=== PATIENT | male | born 1945 | race Caucasian/White ===

== ENCOUNTER 2021-03-05 09:56 | Emergency (ER) | payer MEDICARE, MEDICAID ==
[~2021-03-05] VITALS: Ht 168.9 cm; Wt 77.3 kg
--- OUTSIDE RECORDS SUMMARY | 2021-03-05 10:04 | CCD | Continuity of Care Document ---
Author Author Sadiq OBRGES M.D. Organization Unknown Address [address] [facility], [address] [place] [address] Phone [phone] Care Team Providers Care Manager Cable Name Role Phone Axel Lake MD @ [facility] Int AUTM Problems Description No Information Available Social History Type Date Description Comments Sex Unknown ETOH Use Currently consumes alcohol CASE/ WK Tobacco Use Start: Unknown End: Unknown Patient is a former smoker 1/2 ppd x55 years quit in 2018 Recreational Drug Use Regularly uses Marijuana Allergies and adverse reactions Description No Known Drug Allergies Medications Active Medications SIG Qnty Indications Ordering Provide r Date Omeprazole 40mg Capsules DR 1 by mouth daily 30caps K21.00 Irving Borges M.D. 02/01/2021 Allopurinol 100mg Tablets 2 by mouth every day Unknown Finasteride 5mg Tablets daily Unknown Aspirin Low Dose 81mg Tablets DR 1 PO Daily Unknown Vitamin B-12 1000mcg Tablets 1 by mouth every day Unknown Atorvastatin Calcium 20mg Tablets one tab once daily Unknown History Medications Suprep Bowel Prep Kit 17.5-3.13-1.6GM/177ML Solution take per doctor's bowel prep instructions. 354ml Irving Borges M.D. 01/12/2021 - 01/31/2021 Immunizations Description No Information Available Vital Signs Date Vital Result Comment 02/01/2021 1:30pm BP Systolic 148 mmHg BP Diastolic 76 mmHg Heart Rate 83 /min Body Temperature 98.3 F Height 66.5 inches 5'6.50" Weight 172.00 lb BMI (Body Mass Index) 27.3 kg/m2 [place] Body Weight 142 lb Weight 78.019 kg BSA (Body Surface Area) 1.89 m2 01/05/2021 10:55am BP Systolic 135 mmHg BP Diastolic 74 mmHg Body Temperature 98.4 F Height 66.5 inches 5'6.50" Weight 171.38 lb BMI (Body Mass Index) 27.2 kg/m2 [place] Body Weight 142 lb Weight 77.736 kg BSA (Body Surface Area) 1.88 m2 Results Test Acquired Date Facility Test Result H/L Range Note Laboratory test finding 01/21/2021 [facility] Main Lab [address] [place] [address] [phone] Pathology Request For Service (SEE NOTE) 1 1 FINAL DIAGNOSIS A-Gastric polyp, polypectomy: Polypoid fragments of gastric mucosa with focal foveolar hyperplasia, mild chronic inflammation and reactive changes. No H.pylori is identified. B-Colon polyps, polypectomy: Tubular adenoma, fragments. Separate fragments of hyperplastic polyp. 01/25/2021 - 1048 CLINICAL DIAGNOSIS H/O polyps, dysphagia 01/21/2021 - 1450 GROSS DIAGNOSIS A - Received in formalin labeled "gastric polyp" and consists of fragment of tissue 0.3 x 0.2 x 0.1 cm. All in one. B - Received in formalin labeled "colon polyps" and consists of fragments of tissue 0.5 x 0.5 x 0.2 cm. in aggregate. All in one. -OA 01/25/2021 - 1048 Signed JOSESITO KHAN MD 01/25/2021 1053 Procedures Date Code Description Status 02/01/2021 81667 Office/Outpatient Established Mo d MDM 30-39 Min Completed 01/21/2021 19077 Colonoscopy W/ Poly Completed 01/21/2021 62138 Endoscopy Upper GI Remove Tumor/ Polyp/Lesion Snare Technique Completed 01/21/2021 05419 Endoscopy Upper GI Balloon Dilat ion Of Esophagus Completed 01/05/2021 88828 Office/Outpatient New Moderate M DM 45-59 Minutes Completed Medical Devices Description No Information Available Encounters Type Date Location Provider Dx Diagnosis Office Visit 02/01/2021 1:30p [facility] VENKAT Massey D12.6 Benign neoplasm of colon, unspecified K21.00 Gastro-esophageal reflux dis with esophagitis, without bleed K57.30 Dvrtclos of lg int w/o perfo ration or abscess w/o bleeding Office Visit 01/05/2021 10:30a [facility] VENKAT Massey Z86.010 Personal history of colonic polyps R13.10 Dysphagia, unspecified K57.30 Dvrtclos of lg int w/o perfo ration or abscess w/o bleeding Assessments Date Code Description Provider 02/01/2021 D12.6 Benign neoplasm of colon, unspec ified VENKAT Pena 02/01/2021 K21.00 Gastro-esophageal re flux disease with esophagitis, without bleeding VENKAT Pena 02/01/2021 K57.30 Diverticulosis of la rge intestine without perforation or abscess without bleeding VENKAT Pena 01/21/2021 Z12.11 Encounter for screening for best gnant neoplasm of colon Irving Borges M.D. 01/21/2021 Z86.010 Personal history of colonic poly ps Irving Borges M.D. 01/21/2021 D12.6 Benign neoplasm of colon, unspec ified Irving Borges M.D. 01/21/2021 K31.7 Polyp of stomach and duodenum Ro hugh Borges M.D. 01/21/2021 K57.30 Diverticulosis of la rge intestine without perforation or abscess without bleeding Irving Borges M.D. 01/21/2021 R13.10 Dysphagia, unspecified Irving lynch M.D. 01/21/2021 K22.2 Esophageal obstruction Irving lynch M.D. 01/21/2021 K31.89 Other diseases of stomach and du odenum Irving Borges M.D. 01/21/2021 K21.00 Gastro-esophageal re flux disease with esophagitis, without bleeding Irving Borges M.D. 01/05/2021 Z86.010 Personal history of colonic poly ps VENKAT Pena 01/05/2021 R13.10 Dysphagia, unspecified VENKAT Massey 01/05/2021 K57.30 Diverticulosis of la rge intestine without perforation or abscess without bleeding VENKAT Pena Plan of Treatment 02/01/2021 - VENKAT Pena* D12.6 Benign neoplasm of colon, unspecified * K21.00 Gastro-esophageal reflux disease with esophagitis, without bleeding* New Medication:* Omeprazole 40 mg - 1 by mouth daily * K57.30 Diverticulosis of large intestine without perforation or abscess without bleeding Functional Status Description No Information Available Mental Status Description No Information Available Referrals Description No Information Available
--- OUTSIDE RECORDS SUMMARY | 2021-03-05 10:05 | CCD | Continuity of Care Document ---
Author Author Sadiq AZUL PA Organization Unknown Address [address] [facility] [address] [place] [address] Phone [phone] Care Team Providers Care Medical And Health Services Manager Name Role Phone Axel Lake MD @ [facility] Int AUTM [phone] Problems Description No Information Available Social History Type Date Description Comments Sex Unknown ETOH Use Currently consumes alcohol CASE/ WK Tobacco Use Start: Unknown End: Unknown Patient is a former smoker 1/2 ppd x55 years quit in 2018 Recreational Drug Use Regularly uses Marijuana Allergies, Adverse Reactions, Alerts Description No Known Drug Allergies Medications Active Medications SIG Qnty Indications Ordering Provide r Date Omeprazole 40mg Capsules DR 1 by mouth daily 30caps K21.00 Irving Morrell M.D. 02/01/2021 Allopurinol 100mg Tablets 2 by mouth every day Unknown Finasteride 5mg Tablets daily Unknown Aspirin Low Dose 81mg Tablets DR 1 PO Daily Unknown Vitamin B-12 1000mcg Tablets 1 by mouth every day Unknown Atorvastatin Calcium 20mg Tablets one tab once daily Unknown History Medications Suprep Bowel Prep Kit 17.5-3.13-1.6GM/177ML Solution take per doctor's bowel prep instructions. 354ml Irving Morrell M.D. 01/12/2021 - 01/31/2021 Immunizations Description No Information Available Vital Signs Date Vital Result Comment 02/01/2021 1:30pm BP Systolic 148 mmHg BP Diastolic 76 mmHg Heart Rate 83 /min Body Temperature 98.3 F Height 66.5 inches 5'6.50" Weight 172.00 lb BMI (Body Mass Index) 27.3 kg/m2 [place] Body Weight 142 lb Weight 78.019 kg BSA (Body Surface Area) 1.89 m2 01/05/2021 10:55am BP Systolic 135 mmHg BP Diastolic 74 mmHg Body Temperature 98.4 F Height 66.5 inches 5'6.50" Weight 171.38 lb BMI (Body Mass Index) 27.2 kg/m2 [place] Body Weight 142 lb Weight 77.736 kg BSA (Body Surface Area) 1.88 m2 Results Test Acquired Date Facility Test Result H/L Range Note Laboratory test finding 01/21/2021 [facility] Main Lab [address] [place] [address] [phone] Pathology Request For Service (SEE NOTE) 1 [...] 01/25/2021 1053 Procedures Date Code Description Status 01/21/2021 11197 Colonoscopy W/ Poly Completed 01/21/2021 27161 Endoscopy Upper GI Remove Tumor/ Polyp/Lesion Snare Technique Completed 01/21/2021 35189 Endoscopy Upper GI Balloon Dilat ion Of Esophagus Completed 01/05/2021 23115 Office/Outpatient New Moderate M DM 45-59 Minutes Completed Medical Devices Description No Information Available Encounters Type Date Location Provider Dx Diagnosis Office Visit 01/05/2021 10:30a [facility] VENKAT Massey Z86.010 Personal [...] for best gnant neoplasm of colon Irving Morrell M.D. 01/21/2021 Z86.010 Personal history of colonic poly ps Irving Morrell M.D. 01/21/2021 D12.6 Benign neoplasm of colon, unspec ified Irving Morrell M.D. 01/21/2021 K31.7 Polyp of stomach and duodenum Ro hugh Morrell M.D. 01/21/2021 K57.30 Diverticulosis of la rge intestine without perforation or abscess without bleeding Irving Morrell M.D. 01/21/2021 R13.10 Dysphagia, unspecified Irving lynch M.D. 01/21/2021 K22.2 Esophageal obstruction Irving lynch M.D. 01/21/2021 K31.89 Other diseases of stomach and du odenum Irving Morrell M.D. 01/21/2021 K21.00 Gastro-esophageal re flux disease with esophagitis, without bleeding Irving Morrell M.D. 01/05/2021 Z86.010 Personal history of colonic [...]
--- OUTSIDE RECORDS SUMMARY | 2021-03-05 10:05 | CCD | Continuity of Care Document ---
Author Author Sadiq AZUL PA Organization Unknown Address [address] [facility] [address] [place] [address] Phone [phone] Care Team Providers Care Environmental Services Aide Name Role Phone Axel Lake MD @ [facility] Int AUTM [phone] Problems Description No Information Available Social History [...] lb BMI (Body Mass Index) 27.3 kg/m2 [place] Body Weight 142 lb Weight 78.019 kg BSA (Body Surface Area) 1.89 m2 01/05/2021 10:55am BP Systolic 135 mmHg BP Diastolic 74 mmHg Body Temperature 98.4 F Height 66.5 inches 5'6.50" Weight 171.38 lb BMI (Body Mass Index) 27.2 kg/m2 [place] Body Weight 142 lb Weight 77.736 kg BSA (Body Surface Area) 1.88 m2 Results Test Acquired Date Facility Test Result H/L Range Note Laboratory test finding 01/21/2021 [facility] Main Lab [address] [place] [address] [phone] Pathology Request For Service (SEE NOTE) 1 [...] 1053 Procedures Date Code Description Status 01/21/2021 77857 Colonoscopy W/ Poly Completed 01/21/2021 48049 Endoscopy Upper GI Remove Tumor/ Polyp/Lesion Snare Technique Completed 01/21/2021 47474 Endoscopy Upper GI Balloon Dilat ion Of Esophagus Completed 01/05/2021 57185 Office/Outpatient New Moderate M DM 45-59 Minutes Completed Medical Devices Description No Information Available Encounters Type Date Location Provider Dx Diagnosis Office Visit 01/05/2021 10:30a [facility] VENKAT Massey Z86.010 Personal history [...]
--- OUTSIDE RECORDS SUMMARY | 2021-03-05 10:05 | CCD | Continuity of Care Document ---
Author Author Sadiq AZUL PA Organization Unknown Address [address] [facility] [address] [place] [address] Phone [phone] Care Team Providers Care Landscaping Crew Leader Name Role Phone Axel Lake MD @ [facility] Int AUTM [phone] Problems Description No Information Available Social History Type Date Description Comments Sex Unknown ETOH Use Currently consumes alcohol CASE/ WK Tobacco Use Start: Unknown End: Unknown Patient is a former smoker 1/2 ppd x55 years quit in 2018 Recreational Drug Use Regularly uses Marijuana Allergies, Adverse Reactions, Alerts Description No Known Drug Allergies Medications Active Medications SIG Qnty Indications Ordering Provide r Date Allopurinol 100mg Tablets 2 by mouth every day Unknown Finasteride 5mg Tablets daily Unknown Aspirin Low Dose 81mg Tablets DR 1 PO Daily Unknown Vitamin B-12 1000mcg Tablets 1 by mouth every day Unknown Atorvastatin Calcium 20mg Tablets one tab once daily Unknown Immunizations Description No Information Available Vital Signs Date Vital Result Comment 01/05/2021 10:55am BP Systolic 135 mmHg BP Diastolic 74 mmHg Body Temperature 98.4 F Height 66.5 inches 5'6.50" Weight 171.38 lb BMI (Body Mass Index) 27.2 kg/m2 [place] Body Weight 142 lb Weight 77.736 kg BSA (Body Surface Area) 1.88 m2 01/31/2016 11:27am BP Systolic 146 mmHg BP Diastolic 84 mmHg Height 66.5 inches 5'6.50" Weight 161.12 lb BMI (Body Mass Index) 25.6 kg/m2 [place] Body Weight 142 lb Weight 73.086 kg BSA (Body Surface Area) 1.83 m2 Results Description No Information Available Procedures Date Code Description Status 01/05/2021 52805 Office/Outpatient New Moderate M DM 45-59 Minutes Completed Medical Devices Description No Information Available Encounters Type Date Location Provider Dx Diagnosis Office Visit 01/05/2021 10:30a [facility] VENKAT Massey Z86.010 Personal history of colonic polyps R13.10 Dysphagia, unspecified K57.30 Dvrtclos of lg int w/o perfo ration or abscess w/o bleeding Assessments Date Code Description Provider 01/05/2021 Z86.010 Personal history of colonic poly ps VENKAT Pena 01/05/2021 R13.10 Dysphagia, unspecified VENKAT Massey 01/05/2021 K57.30 Diverticulosis of la rge intestine without perforation or abscess without bleeding VENKAT Pena Plan of Treatment Future Appointment(s):* 02/03/2021 1:30 pm - VENKAT Pena at [facility] * 01/21/2021 11:45 am - Irving Morrell M.D. at [facility] 01/05/2021 - VENKAT Pena* Z86.010 Personal history of colonic polyps * R13.10 Dysphagia, unspecified * K57.30 Diverticulosis of large intestine without perforation or abscess without bleeding Functional Status Description No Information Available Mental Status Description No Information Available Referrals Description No Information Available
--- OUTSIDE RECORDS SUMMARY | 2021-03-05 10:05 | CCD | Continuity of Care Document ---
Author Author Sadiq AZUL PA Organization Unknown Address [address] [place] [address] [address] [place] [address] Phone [phone] Care Team Providers Care Production Supervisor Trainee Name Role Phone Axel Lake MD @ [facility] Int AUTM [phone] Problems Description No Information Available Social History [...] lb BMI (Body Mass Index) 27.2 kg/m2 [place] Body Weight 142 lb Weight 77.736 kg BSA (Body Surface Area) 1.88 m2 01/31/2016 11:27am BP Systolic 146 mmHg BP Diastolic 84 mmHg Height 66.5 inches 5'6.50" Weight 161.12 lb BMI (Body Mass Index) 25.6 kg/m2 [place] Body Weight 142 lb Weight 73.086 kg BSA (Body Surface Area) 1.83 m2 Results Description No Information Available Procedures Description No Information Available Medical Devices Description No Information Available Encounters Description No Information Available Assessments Description No Information Available Plan of Treatment No Information Available Functional Status Description No Information Available Mental Status Description No Information Available Referrals Description No Information Available
--- OUTSIDE RECORDS SUMMARY | 2021-03-05 10:05 | CCD ---
Author Author [facility] Organization [facility] Address Unknown Phone Unavailable Care Team Providers Care Back Line Cook Name Role Phone Cresencio Lake MD Unavailable Unavailable Cresencio Lake MD Unavailable Unavailable Cresencio Lake MD Unavailable Unavailable Cresencio Lake MD Unavailable Unavailable Cresencio Lake MD Unavailable Unavailable Cresencio Lake MD Unavailable Unavailable Cresencio Lake MD Unavailable Unavailable Cresencio Lake MD Unavailable Unavailable Cresencio Lake MD Unavailable Unavailable Cresencio Lake MD Unavailable Unavailable Cresencio Lake MD Unavailable Unavailable Cresencio Lake MD Unavailable Unavailable Cresencio Lake MD Unavailable Unavailable Cresencio Lake MD Unavailable Unavailable Cresencio Lake MD Unavailable Unavailable Cresencio Lake MD Unavailable Unavailable Cresencio Lake MD Unavailable Unavailable Cresencio Lake MD Unavailable Unavailable Cresencio Lake MD Unavailable Unavailable Cresencio Lake MD Unavailable Unavailable Cresencio Lake MD Unavailable Unavailable Cresencio Lake MD Unavailable Unavailable Cresencio Lake MD Unavailable Unavailable Cresencio Lake MD Unavailable Unavailable Cresencio Lake MD Unavailable Unavailable Cresencio Lake MD Unavailable Unavailable Cresencio Lake MD Unavailable Unavailable Cresencio Lake MD Unavailable Unavailable Cresencio Lake MD Unavailable Unavailable Cresencio Lake MD Unavailable Unavailable Cresencio Lake MD Unavailable Unavailable Cresencio Lake MD Unavailable Unavailable Cresencio Lake MD Unavailable Unavailable Cresencio Lake MD Unavailable Unavailable Cresencio Lake MD Unavailable Unavailable JayaCresencio MD Unavailable Unavailable JayaCresencio MD Unavailable Unavailable JayaCresencio MD Unavailable Unavailable Lake LeelanauCresencio MD Unavailable Unavailable Lake [place], Cresencio Reyna MD Unavailable Unavailable Lake LeelanauCresencio MD Unavailable Unavailable JayaCresencio MD Unavailable Unavailable Lake LeelanauCresencio MD Unavailable Unavailable JayaCresencio MD Unavailable Unavailable Lake LeelanauCresencio MD Unavailable Unavailable Lake LeelanauCresencio MD Unavailable Unavailable Lake LeelanauCresencio MD Unavailable Unavailable Lake LeelanauCresencio MD Unavailable Unavailable JayaCresencio MD Unavailable Unavailable JayaCresencio MD Unavailable Unavailable Lake LeelanauCresencio MD Unavailable Unavailable JayaCresencio MD Unavailable Unavailable Lake LeelanauCresencio MD Unavailable Unavailable JayaCresencio MD Unavailable Unavailable JayaCresencio MD Unavailable Unavailable JayaCresencio MD Unavailable Unavailable Lake LeelanauCresencio MD Unavailable Unavailable JayaCresencio MD Unavailable Unavailable JayaCresencio MD Unavailable Unavailable JayaCresencio MD Unavailable Unavailable Lake LeelanauCresencio MD Unavailable Unavailable Lake LeelanauCresencio MD Unavailable Unavailable Lake LeelanauCresencio MD Unavailable Unavailable JayaCresencio MD Unavailable Unavailable Lake LeelanauCresencio MD Unavailable Unavailable JayaCresencio MD Unavailable Unavailable Lake LeelanauCresencio MD Unavailable Unavailable JayaCresencio MD Unavailable Unavailable JayaCresencio MD Unavailable Unavailable JayaCresencio rosas MD Unavailable Unavailable JayaCresencio MD Unavailable Unavailable JayaCresencio MD Unavailable Unavailable Lake LeelanauCresencio MD Unavailable Unavailable Lake LeelanauCresencio MD Unavailable Unavailable JayaCresencio MD Unavailable Unavailable Lake LeelanauCresencio MD Unavailable Unavailable JayaCresencio MD Unavailable Unavailable Lake LeelanauCresencio MD Unavailable Unavailable JayaCresencio MD Unavailable Unavailable Lake LeelanauCresencoi MD Unavailable Unavailable JayaCresencio MD Unavailable Unavailable JayaCresencio MD Unavailable Unavailable Lake LeelanauCresencio MD Unavailable Unavailable JayaCresencio MD Unavailable Unavailable Lake LeelanauCresencio MD Unavailable Unavailable JayaCresencio MD Unavailable Unavailable Matthews, L Nikci RPA Unavailable Unavailable Matthews, L Nicki RPA Unavailable Unavailable Matthews, L Nicki RPA Unavailable Unavailable Matthews, L Nicki RPA Unavailable Unavailable Matthews, L Nicki RPA Unavailable Unavailable Matthews, L Nicki RPA Unavailable Unavailable Matthews, L Nicki RPA Unavailable Unavailable Matthews, L Nicki RPA Unavailable Unavailable Matthews, L Nicki RPA Unavailable Unavailable Matthews, L Nicki RPA Unavailable Unavailable Matthews, L Nicki RPA Unavailable Unavailable Matthews, L Nicki RPA Unavailable Unavailable Matthews, L Nicki RPA Unavailable Unavailable Matthews, L Nicki RPA Unavailable Unavailable Matthews, L Nicki RPA Unavailable Unavailable Matthews, L Nicki RPA Unavailable Unavailable Matthews, L Nicki RPA Unavailable Unavailable Matthews, L Nicki RPA Unavailable Unavailable Matthews, L Nicki RPA Unavailable Unavailable Matthews, L Nicki RPA Unavailable Unavailable Matthews, L Nicki RPA Unavailable Unavailable Matthews, L Nicki RPA Unavailable Unavailable Matthews, L Nicki RPA Unavailable Unavailable Matthews, L Nicki RPA Unavailable Unavailable Matthews, L Nicki RPA Unavailable Unavailable Matthews, L Nicki RPA Unavailable Unavailable Matthews, L Nicki RPA Unavailable Unavailable Matthews, L Nicki RPA Unavailable Unavailable Matthews, L Nicki RPA Unavailable Unavailable Matthews, L Nicki RPA Unavailable Unavailable Matthews, L Nicki RPA Unavailable Unavailable Matthews, L Nicki RPA Unavailable Unavailable Re-disclosure Warning The records that you are about to access may contain information from federally-assisted alcohol or drug abuse programs. If such information is present, then the following federally mandated warning applies: This information has been disclosed to you from records protected by federal confidentiality rules (42 CFR part 2). The federal rules prohibit you from making any further disclosure of this information unless further disclosure is expressly permitted by the written consent of the person to whom it pertains or as otherwise permitted by 42 CFR part 2. A general authorization for the release of medical or other information is NOT sufficient for this purpose. The Federal rules restrict any use of the information to criminally investigate or prosecute any alcohol or drug abuse patient.The records that you are about to access may contain highly sensitive health information, the redisclosure of which is protected by Article 27-F of the [facility] Public Health law. If you continue you may have access to information: Regarding HIV / AIDS; Provided by facilities licensed or operated by the [facility] Office of Mental Health; or Provided by the [facility] Office for People With Developmental Disabilities. If such information is present, then the following [place] State mandated warning applies: This information has been disclosed to you from confidential records which are protected by state law. State law prohibits you from making any further disclosure of this information without the specific written consent of the person to whom it pertains, or as otherwise permitted by law. Any unauthorized further disclosure in violation of state law may result in a fine or group home sentence or both. A general authorization for the release of medical or other information is NOT sufficient authorization for further disc losure. Encounters Encounter Providers Location Date Indications Data Source(s ) Outpatient Attender: Nicki Matthews RPA [facility] 02/01/2021 01:30:00 PM EDT [facility] Attender: Nicki Matthews RPA [facility] 01/05/2021 10:30:00 AM EDT [facility] Outpatient Attender: Axel Cardenas 0 11/24/2020 09:40:00 AM EDT [facility] ([facility] ) Outpatient [address] [place] [address] 06/15/2020 12:00:00 AM EST eCW1 ([facility]) Unknown [address] [place] [address] 06/15/2020 12:00:00 AM EST eCW1 ([facility]) Outpatient Attender: Axel Cardenas 1 08:00:00 AM EST [facility] ([facility] ) Immunizations Vaccine Date Status Description Data Source(s) COVID-19 VACCINE Moderna 08/09/2020 12:00:00 AM EDT completed [facility] Vaccine Series Complete: YESThis Data wa s Submitted to [facility] Via [facility]. COVID-19 VACCINE, MRNA-1273, LNP-S (MODERNA)/PF 08/09/2020 1 2:00:00 AM EDT completed [facility] COVID-19 VACCINE, MRNA-1273, LNP-S (MODERNA)/PF 07/15/2020 1 2:00:00 AM EST completed [facility] This CVX code allows reporting of a vacc ination when formulation is unknown (for example, when recording a Influenza vaccination when noted on a vaccination card) 02/02/2020 08:28:00 AM EDT completed VALENTIN Marcos ([facility]) INFLUENZA VACCINE QUADRIVALENT (65 YR UP)/MF59 C.1/PF 02/02/2020 12:00:00 AM EDT completed [facility] Medications Medication Brand Name Start Date Product Form Dose Route Admi nistrative Instructions Pharmacy Instructions Status Indications Reaction Description Data Source(s) 40 mg 02/02/2021 12:00:00 AM EDT capsule,delayed release (DR/EC) 30 TAKE ONE CAPSULE BY MOUTH EVERY DAY TAKE ONE CAPSULE BY MOUTH EVERY DAY SOLD: 02/12/2021 [facility] Omeprazole 40 MG Delayed Release Oral Capsule Omeprazole 02/01/2021 12:00:00 AM EDT ORAL active [facility] ([facility], ) 240 mcg/0.7 mL 01/18/2021 12:00:00 AM EDT syringe 0 INJECT DIRECTED INJECT DIRECTED SOLD: 01/18/2021 [facility] SUPREP BOWEL PREP KIT 17.5-3.13-1.6 gram SODIUM, POTASSIUM,M AG SULFATES 01/12/2021 12:00:00 AM EDT [facility] 354 TAKE PER DOCTOR'S BOWEL PREP INSTRUCTIONS TAKE PER DOCTOR'S BOWEL PREP INSTRUCTIONS SOLD: 01/18/2021 [facility] Suprep Bowel Prep Kit Suprep Bowel Prep Kit 01/12/2021 12:00:00 AM EDT completed [facility] ([facility], ) 100 mg 09/11/2020 12:00:00 AM EDT tablet 180 TAKE TWO TABLETS BY MOUTH EVERY DAY TAKE TWO TABLETS BY MOUTH EVERY DAY SOLD: 09/11/2020 [facility] 100 mg 09/11/2020 12:00:00 AM EDT tablet 180 TAKE TWO TABLETS BY MOUTH EVERY DAY TAKE TWO TABLETS BY MOUTH EVERY DAY SOLD: 12/10/2020 [facility] Covid-19 vaccine, Unspecified 08/09/2020 12:00:00 AM EDT completed [facility] ([facility]) Medication administered onsite atorvastatin 20 MG Oral Tablet ATORVASTATIN CALCIUM 08/03/2020 1 2:00:00 AM EDT tablet 90 TAKE ONE TABLET BY MOUTH EVERY D AY TAKE ONE TABLET BY MOUTH EVERY DAY SOLD: 11/03/2020 [facility] atorvastatin 20 MG Oral Tablet ATORVASTATIN CALCIUM 08/03/2020 1 2:00:00 AM EDT tablet 90 TAKE ONE TABLET BY MOUTH EVERY D AY TAKE ONE TABLET BY MOUTH EVERY DAY SOLD: 02/01/2021 [facility] atorvastatin 20 MG Oral Tablet ATORVASTATIN CALCIUM 08/03/2020 1 2:00:00 AM EDT tablet 90 TAKE ONE TABLET BY MOUTH EVERY D AY TAKE ONE TABLET BY MOUTH EVERY DAY SOLD: 08/04/2020 [facility] Covid-19 vaccine, Unspecified 07/15/2020 12:00:00 AM EST completed [facility] ([facility]) Medication administered onsite Finasteride 5 MG Oral Tablet FINASTERIDE 06/15/2020 12:00:00 AM EST ta blet 90 TAKE ONE TABLET BY MOUTH EVERY DAY TAKE ONE TABLET BY MOUTH EVERY DAY SOLD: 12/10/2020 [facility] Finasteride 5 MG Oral Tablet FINASTERIDE 06/15/2020 12:00:00 AM EST ta blet 90 TAKE ONE TABLET BY MOUTH EVERY DAY TAKE ONE TABLET BY MOUTH EVERY DAY SOLD: 09/12/2020 [facility] Finasteride 5 MG Oral Tablet FINASTERIDE 06/15/2020 12:00:00 AM EST ta blet 90 TAKE ONE TABLET BY MOUTH EVERY DAY TAKE ONE TABLET BY MOUTH EVERY DAY SOLD: 06/16/2020 [facility] 500-125 mg 04/14/2020 12:00:00 AM EST tablet 30 TAKE ONE TABLET BY MOUTH THREE TIMES A DAY FOR 10 DAYS TAKE ONE TABLET BY MOUTH THREE TIMES A D AY FOR 10 DAYS SOLD: 04/14/2020 [facility] 5-325 mg 04/14/2020 12:00:00 AM EST tablet 32 TAKE 1-2 TABLETS BY MOUTH EVERY 4 HOURS NEEDED FOR PAIN MAXIMUM DAILY DOSE = 8 TAKE 1-2 TABLETS BY MOUTH EVERY 4 HOURS NEEDED FOR PAIN MAXIMUM DAILY DOSE = 8 SOLD: 04/14/2020 [facility] 800 mg 04/14/2020 12:00:00 AM EST tablet 21 TAKE ONE TABLET BY MOUTH EVERY 8 HOURS NEEDED WITH FOOD UP TO 7 DAYS TAKE ONE TABLET BY MOUTH EVERY 8 HOURS A S NEEDED WITH FOOD UP TO 7 DAYS SOLD: 04/14/2020 [facility] Finasteride 5 MG Oral Tablet FINASTERIDE 02/13/2020 12:00:00 AM EDT ta blet 30 TAKE ONE TABLET BY MOUTH EVERY DAY TAKE ONE TABLET BY MOUTH EVERY DAY SOLD: 05/16/2020 [facility] Finasteride 5 MG Oral Tablet FINASTERIDE 02/13/2020 12:00:00 AM EDT ta blet 30 TAKE ONE TABLET BY MOUTH EVERY DAY TAKE ONE TABLET BY MOUTH EVERY DAY SOLD: 04/17/2020 [facility] Finasteride 5 MG Oral Tablet FINASTERIDE 02/13/2020 12:00:00 AM EDT ta blet 30 TAKE ONE TABLET BY MOUTH EVERY DAY TAKE ONE TABLET BY MOUTH EVERY DAY SOLD: 03/17/2020 [facility] Finasteride 5 MG Oral Tablet FINASTERIDE 02/13/2020 12:00:00 AM EDT ta blet 30 TAKE ONE TABLET BY MOUTH EVERY DAY TAKE ONE TABLET BY MOUTH EVERY DAY SOLD: 02/16/2020 [facility] atorvastatin 20 MG Oral Tablet ATORVASTATIN CALCIUM 01/24/2020 1 2:00:00 AM EDT tablet 90 TAKE ONE TABLET BY MOUTH EVERY D AY TAKE ONE TABLET BY MOUTH EVERY DAY SOLD: 01/25/2020 [facility] atorvastatin 20 MG Oral Tablet ATORVASTATIN CALCIUM 01/24/2020 1 2:00:00 AM EDT tablet 90 TAKE ONE TABLET BY MOUTH EVERY D AY TAKE ONE TABLET BY MOUTH EVERY DAY SOLD: 04/24/2020 [facility] 100 mg 12/10/2019 12:00:00 AM EDT tablet 180 TAKE TWO TABLETS BY MOUTH EVERY DAY TAKE TWO TABLETS BY MOUTH EVERY DAY SOLD: 06/13/2020 [facility] 100 mg 12/10/2019 12:00:00 AM EDT tablet 180 TAKE TWO TABLETS BY MOUTH EVERY DAY TAKE TWO TABLETS BY MOUTH EVERY DAY SOLD: 03/14/2020 [facility] Finasteride 5 MG Oral Tablet FINASTERIDE 09/11/2019 12:00:00 AM EDT ta blet 30 TAKE ONE TABLET BY MOUTH EVERY DAY TAKE ONE TABLET BY MOUTH EVERY DAY SOLD: 01/12/2020 [facility] Insurance Providers Payer name Policy type / Coverage type Policy ID Covered libertarian ID Covered libertarian's relationship to quintana Policy Quintana Plan Information Medicare [facility] Serv Medicare Primary 1408 Self MEDICARE [id number] A Medicare Natl Govt Servic Medicare Primary [id number] Self [id number] Medicare Natl Govt Serv Medicare Primary [id number] Self [id number] Medicare Natl Govt Serv Medicare Primary [id number] Self 0 [id number] A Medicaid Medigap Part B [id number] Self [id number] ANSI-Medicare Part B [id number] ANSI-Medicaid [id number] ANSI-Medicare Part B [id number] ANSI-Medicare Part B [id number] ANS-Medicare Part B [id number] [facility] MEDICAID [id number] SP [id number] E Medicaid Medigap Part B [id number] [id number] Self [id number] Medicaid Medigap Part B [id number] 4.0 Self [id number] MEDICARE [id number] SP [id number] A Medicaid Medigap Part B [id number] Self 1 1 Medicaid [place] Medigap Part B [id number] Self Medicare 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 BPH loc w urin obs/LUTS Problem 06/14/2020 12:00:00 AM EST eCW1 ([facility]) Surgeries/Procedures Procedure Description Date Indications Data Source(s) OFFICE OUTPATIENT VISIT 25 MINUTES 02/01/2021 12:00:00 AM EDT [facility] ([facility], ) Endoscopy Upper GI Balloon Dilation Of Esophagus 01/21 12:00:00 AM EDT [facility] ([facility], ) Endoscopy Upper GI Remove Tumor/Polyp/Lesion Snare Technique 01/21/2021 12:00:00 AM EDT [facility] ([facility], ) Colonoscopy W/ Poly 01/21/2021 12:00:00 AM EDT [facility] ([facility], ) OFFICE OUTPATIENT NEW 45 MINUTES 01/05/2021 12:00:00 A M EDHemant [facility] ([facility], ) Chronic Care MGMT 20 Mins Clinical Staff Time Per Calendar M [facility] 11/30/2020 12:00:00 AM EDT [facility] ([facility] ) OFFICE OUTPATIENT VISIT 25 MINUTES 11/24/2020 12:00:00 AM EDT [facility] ([facility]) Chronic Care Management Services Ea Addl 20 Min 2020 12:00:00 AM EDT [facility] ([facility]) Chronic Care MGMT 20 Mins Clinical Staff Time Per Calendar M [facility] 10/08/2020 12:00:00 AM EDT [facility] ([facility] ) Chronic Care Management Services Ea Addl 20 Min 2020 12:00:00 AM EDT [facility] ([facility]) Chronic Care MGMT 20 Mins Clinical Staff Time Per Calendar M ont 08/03/2020 12:00:00 AM EDT [facility] ([facility] ) Chronic Care Management Services Ea Addl 20 Min 2020 12:00:00 AM EST [facility] ([facility]) Chronic Care MGMT 20 Mins Clinical Staff Time Per Calendar M [facility] 07/16/2020 12:00:00 AM EST [facility] ([facility] ) Results ID Date Data Source [id number] 01/21/2021 12:46:00 PM EDT [facility] ([facility] ) Name Value Range Interpretation Code Description Data Mary Carmen rce(s) Supporting Document(s) Surgical pathology study [facility] FINAL DIAGNOSIS A-Gastric polyp, polypectomy: Polypoid fragments [...] cm. in aggregate. All in one. -OA 01/25/20211048 Signed JOSESITO KHAN MD 01/25/2021 1053 ID Date Data Source [id number] 01/17/2021 09:45:00 AM EDT [facility] Name Value Range Interpretation Code Description Data Mary Carmen rce(s) Supporting Document(s) SARS-CoV-2 (COVID-19) RNA [Presence] in Respiratory specimen by ALY with probe detection Not Detected [facility] This lab was ordered by [facility] and reported by [employer] ID Date Data Source [id number] 01/17/2021 09:45:00 AM EDT [facility] Name Value Range Interpretation Code Description Data Mary Carmen rce(s) Supporting Document(s) Coronavirus 2019 Nasopharygeal Laboratory test result [facility] ([facility]) ASSAY INFORMATION: Real Time RT-PCR NOTE: The COVID-19 assay has been cleared by the U.S. Food and Drug Administration under the Emergency Use Authorization (EUA). [facility] [employer] are designated as high complexity laboratories by the Clinical Laboratory Improvement Amendments of 1988(CLIA) and are qualified to perform this test. Not Detected ID Date Data Source [id number] 11/24/2020 09:41:00 AM EDT [facility] Name Value Range Interpretation Code Description Data Mary Carmen rce(s) Supporting Document(s) Prostate specific Ag [Mass/volume] in Serum or Plasma 1.55 ng/mL [facility] This assay was performed on the Siemens Dimension EXL using the B- Galactosidase/CPRG methodology and should not be compared interchangeably with other methods. The PSA should not be used alone as a screening test for the presence or absence of malignant disease. ID Date Data Source [id number] 11/24/2020 09:41:00 AM EDT [facility] Name Value Range Interpretation Code Description Data Mary Carmen rce(s) Supporting Document(s) Cholesterol [Mass/volume] in Serum or Plasma 160 mg/dL 131-200 [facility] ([facility]) Triglyceride [Mass/volume] in Serum or Plasma 158 mg/dL 30-150 [facility] ([facility]) Cholesterol in LDL [Mass/volume] in Serum or Plasma by calcu lation 71 CALC 50-159 [facility] ([facility]) Cholesterol in HDL [Mass/volume] in Serum or Plasma 57 mg/dL 35-60 [facility] ([facility]) ID Date Data Source [id number] 11/24/2020 09:41:00 AM EDT [facility] ([facility]) Name Value Range Interpretation Code Description Data Mary Carmen rce(s) Supporting Document(s) Glucose [Mass/volume] in Serum or Plasma 103 mg/dL 74-99 [facility] ([facility]) 100-125 mg/dL PRE-DIABETES/FASTING >126 mg/dL DIABETES/FASTING Creatinine 0.8 mg/dL 0.6-1.3 [facility] ([facility]) Urea nitrogen [Mass/volume] in Serum or Plasma 21 mg/dL 7-18 [facility] ([facility]) Sodium [Moles/volume] in Serum or Plasma 138 meq/L 136-145 [facility] ([facility]) Potassium [Moles/volume] in Serum or Plasma 4.5 meq/L 3.5-5.1 [facility] ([facility]) Carbon dioxide, total [Moles/volume] in Serum or Plasma 22 meq/L 21 -32 [facility] ([facility]) Chloride [Moles/volume] in Serum or Plasma 104 meq/L 98-107 [facility] ([facility]) Calcium [Mass/volume] in Serum or Plasma 9.5 mg/dL 8.5-10.1 [facility] ([facility]) Alkaline phosphatase isoenzyme [Units/volume] in Serum or Pl asma 70 mg/dL 46-116 [facility] ([facility]) Total Bilirubin 0.6 mg/dL 0.2-1.0 [facility] ([facility]) Aspartate aminotransferase [Enzymatic activity/volume] in Serum or Plasma 25 U/L 15-37 [facility] ([facility] ) Alanine aminotransferase [Enzymatic activity/volume] in Seru m or Plasma 58 U/L 12-78 [facility] ([facility]) Albumin [Mass/volume] in Serum or Plasma 4.2 g/dL 3.4-5.0 [facility] ([facility]) A/G Ratio 1.45 CALC 1.00-1.90 [facility] ([facility]) Glomerular filtration rate/1.73 sq M pre dicted among non-blacks [Volume Rate/Area] in Serum or Plasma by Creatinine-based formula (MDRD) Laboratory test result [facility] ([facility] Proteinase 3 Ab [Units/volume] in Serum 7.1 g/dL 6.4-8.2 [facility] ([facility]) Glomerular filtration rate/1.73 sq M pre dicted among blacks [Volume Rate/Area] in Serum or Plasma by Creatinine-based formula (MDRD) Laboratory test result [facility] ([facility]) <content>CHRONIC KIDNEY DISEASE STAGING PER NKF</content>
<content></content>
<content>STAGE I & II GFR >= 60 NORMAL TO MILDLY DECREASED</content>
<content>STAGE III GFR 30-59 MODERATELY DECREASED</content>
<content>STAGE IV GFR 15-29 SEVERELY DECREASED</content>
<content>STAGE V GFR <15 VERY LITTLE GFR LEFT</content>
<content>ESRD GFR <15 ON PROGRAM MANAGER SLP</content>
<content></content> ID Date Data Source [id number] 11/24/2020 09:41:00 AM EDT [facility] Name Value Range Interpretation Code Description Data Mary Carmen rce(s) Supporting Document(s) Erythrocytes [#/volume] in Blood by Automated count 5.02 x10*6/UL 4.2 0-6.30 [facility] Leukocytes [#/volume] in Blood by Automated count 6.8 x10*3/UL 4.1-10 .9 [facility] ([facility] MCV 92.6 fL 80.0-97.0 [facility] ([facility]) Hemoglobin [Mass/volume] in Blood 15.5 g/dL 12.0-18.0 [facility] ([facility] Hematocrit [Volume Fraction] of Blood by Automated count 46.5 % 3 7.0-51.0 [facility] ([facility] MCH 30.9 pg 26.0-32.0 [facility] ([facility]) MCHC 33.4 g/dL 31.0-38.0 [facility] ([facility]) Erythrocyte distribution width [Ratio] by Automated count 13.7 % 11.6-13.7 MED[facility] ([facility]) Platelets [#/volume] in Blood by Automated count 238 x10*3/UL 140-440 [facility] ([facility]) MPV 7.7 FL 7.8-11.0 [facility] Lymph % 30.1 % 10.0-58.5 [facility] ([facility] Lymph # 2.0 x10*3/UL 0.6-4.1 [facility] ([facility]) Neut % 63.0 % 37.0-92.0 [facility] ([facility] Mid % 6.9 % 1.7-9.3 [facility] ([facility]) Neut # 4.3 x10*3/UL 2.0-7.8 [facility] ([facility]) Mid # 0.5 x10*3/UL 0.1-0.6 [facility] ([facility]) ID Date Data Source [id number] 06/27/2020 12:00:00 AM EST [place] Name Value Range Interpretation Code Description Data Mary Carmen rce(s) Supporting Document(s) SARS-CoV2 Rapid Antigen Negative [facility] This lab was ordered by [facility] and reported by [facility]. ID Date Data Source [id number] 05/19/2020 09:22:00 AM EST [facility] ([facility]) Name Value Range Interpretation Code Description Data Mary Carmen rce(s) Supporting Document(s) Urate [Mass/volume] in Serum or Plasma 4.7 mg/dL 3.5-7.2 [facility] ([facility]) ID Date Data Source [id number] 05/19/2020 09:21:00 AM EST [facility] ([facility]) Name Value Range Interpretation Code Description Data Mary Carmen rce(s) Supporting Document(s) Cholesterol [Mass/volume] in Serum or Plasma 143 mg/dL 131-200 [facility] ([facility]) Triglyceride [Mass/volume] in Serum or Plasma 47 mg/dL 30-150 [facility] ([facility]) Cholesterol in HDL [Mass/volume] in Serum or Plasma 79 mg/dL 35-60 [facility] ([facility]) Cholesterol in LDL [Mass/volume] in Serum or Plasma by calcu lation 55 CALC 50-159 [facility] ([facility]) ID Date Data Source [id number] 05/19/2020 09:21:00 AM EST [facility] ([facility]) Name Value Range Interpretation Code Description Data Mary Carmen rce(s) Supporting Document(s) Urea nitrogen [Mass/volume] in Serum or Plasma 18 mg/dL 7-18 [facility] ([facility]) Glucose [Mass/volume] in Serum or Plasma 94 mg/dL 74-99 [facility] ([facility]) 100-125 mg/dL PRE-DIABETES/FASTING >126 mg/dL DIABETES/FASTING Creatinine 1.0 mg/dL 0.6-1.3 [facility] ([facility] Sodium [Moles/volume] in Serum or Plasma 138 meq/L 136-145 [facility] ([facility]) Potassium [Moles/volume] in Serum or Plasma 4.8 meq/L 3.5-5.1 [facility] ([facility]) Chloride [Moles/volume] in Serum or Plasma 102 meq/L 98-107 [facility] ([facility]) Carbon dioxide, total [Moles/volume] in Serum or Plasma 24 meq/L 21 -32 [facility] ([facility]) Calcium [Mass/volume] in Serum or Plasma 8.9 mg/dL 8.5-10.1 [facility] ([facility]) Total Bilirubin 0.5 mg/dL 0.2-1.0 [facility] ([facility]) Alkaline phosphatase isoenzyme [Units/volume] in Serum or Pl asma 68 mg/dL 46-116 [facility] ([facility]) Aspartate aminotransferase [Enzymatic activity/volume] in Serum or Plasma 30 U/L 15-37 [facility] ([facility] ) Albumin [Mass/volume] in Serum or Plasma 4.1 g/dL 3.4-5.0 [facility] Alanine aminotransferase [Enzymatic activity/volume] in Seru m or Plasma 56 U/L 12-78 [facility] Proteinase 3 Ab [Units/volume] in Serum 7.0 g/dL 6.4-8.2 [facility] ([facility] A/G Ratio 1.41 CALC 1.00-1.90 [facility] Glomerular filtration rate/1.73 sq M pre dicted among blacks [Volume Rate/Area] in Serum or Plasma by Creatinine-based formula (MDRD) Laboratory test result [facility] ([facility] <content>CHRONIC KIDNEY DISEASE STAGING PER NKF</content>
<content></content>
<content>STAGE I & II GFR >= 60 NORMAL TO MILDLY DECREASED</content>
<content>STAGE III GFR 30-59 MODERATELY DECREASED</content>
<content>STAGE IV GFR 15-29 SEVERELY DECREASED</content>
<content>STAGE V GFR <15 VERY LITTLE GFR LEFT</content>
<content>ESRD GFR <15 ON PROGRAM MANAGER SLP</content>
<content></content> Glomerular filtration rate/1.73 sq M pre dicted among non-blacks [Volume Rate/Area] in Serum or Plasma by Creatinine-based formula (MDRD) Laboratory test result [facility] ([facility] ID Date Data Source [id number] 05/19/2020 09:21:00 AM EST [facility] Name Value Range Interpretation Code Description Data Mary Carmen rce(s) Supporting Document(s) Leukocytes [#/volume] in Blood by Automated count 8.5 x10*3/UL 4.1-10 .9 [facility] ([facility] Erythrocytes [#/volume] in Blood by Automated count 4.76 x10*6/UL 4.2 0-6.30 [facility] ([facility] Hemoglobin [Mass/volume] in Blood 15.2 g/dL 12.0-18.0 [facility] ([facility] Hematocrit [Volume Fraction] of Blood by Automated count 43.7 % 3 7.0-51.0 [facility] ([facility]) MCV 91.8 fL 80.0-97.0 [facility] ([facility] MCH 31.9 pg 26.0-32.0 [facility] ([facility]) MCHC 34.7 g/dL 31.0-38.0 [facility] ([facility]) Platelets [#/volume] in Blood by Automated count 271 x10*3/UL 140-440 [facility] ([facility]) Erythrocyte distribution width [Ratio] by Automated count 13.3 % 11.6-13.7 [facility] ([facility]) MPV 8.0 FL 7.8-11.0 [facility] ([facility] Lymph % 19.5 % 10.0-58.5 [facility] ([facility] Mid % 5.2 % 1.7-9.3 [facility] ([facility]) Neut % 75.3 % 37.0-92.0 [facility] ([facility] Lymph # 1.6 x10*3/UL 0.6-4.1 [facility] ([facility]) Mid # 0.5 x10*3/UL 0.1-0.6 [facility] ([facility]) Neut # 6.4 x10*3/UL 2.0-7.8 [facility] ([facility]) Procedure Social History Code Duration Value Status Description Data Source(s ) Smoking 06/15/2020 12:00:00 AM EST Former Smoker completed Former Smoker eCW1 ([facility]) Smoking 06/15/2020 12:00:00 AM EST Former Smoker completed Former Smoker eCW1 ([facility]) Vital Signs ID Date Data Source UNK Name Value Range Interpretation Code Description Data Source(s) Body weight 172.00 [lb_av] 172.00 [lb_av] MEDEN T ([facility], ) Heart rate 83 /min 83 /min [facility] ([facility], ) Systolic blood pressure 148 mm[Hg] 148 mm[Hg] M EDENT ([facility]) Diastolic blood pressure 76 mm[Hg] 76 mm[Hg] [facility] ([facility]) Body temperature 98.3 [degF] 98.3 [degF] [facility] ([facility]) Body mass index (BMI) [Ratio] 27.3 kg/m2 27.3 k g/m2 [facility] ([facility]) [place] body weight 142 [lb_av] 142 [lb_av] MEDEN T ([facility]) Body weight 78.019 kg 78.019 kg [facility] ([facility]) Body surface area Derived from formula 1.89 m2 1.89 m2 [facility] ([facility]) Body height 66.5 [in_i] 66.5 [in_i] [facility] ([facility]) 5'6.50" Systolic blood pressure 135 mm[Hg] 135 mm[Hg] [facility] Diastolic blood pressure 74 mm[Hg] 74 mm[Hg] [facility] ([facility]) Body weight 171.38 [lb_av] 171.38 [lb_av] MED[facility] T ([facility]) Body mass index (BMI) [Ratio] 27.2 kg/m2 27.2 k g/m2 [facility] ([facility]) Body temperature 98.4 [degF] 98.4 [degF] [facility] ([facility]) Body height 66.5 [in_i] 66.5 [in_i] [facility] ([facility]) 5'6.50" [place] body weight 142 [lb_av] 142 [lb_av] MEDEN T ([facility]) Body weight 77.736 kg 77.736 kg [facility] ([facility]) Body surface area Derived from formula 1.88 m2 1.88 m2 [facility] ([facility]) Body mass index (BMI) [Ratio] 26.9 kg/m2 26.9 k g/m2 [facility] ([facility]) Systolic blood pressure 136 mm[Hg] 136 mm[Hg] M EDENT ([facility]) Diastolic blood pressure 80 mm[Hg] 80 mm[Hg] [facility] ([facility]) Body height 66.50 [in_i] 66.50 [in_i] [facility] ([facility]) 5'6.50" Body weight 169.12 [lb_av] 169.12 [lb_av] MEDEN T ([facility]) Body weight 169.2 [lb_av] 169.2 [lb_av] eCW1 ([facility]) Body height 66 [in_i] 66 [in_i] eCW1 ([facility]) Body mass index (BMI) [Ratio] 27.31 kg/m2 27.31 kg/m2 eCW1 ([facility]) Heart rate 72 /min 72 /min eCW1 ([facility]) Respiratory rate 18 /min 18 /min eCW1 (Count includes the [facility]) Body temperature 97.9 [degF] 97.9 [degF] eCW1 ( [facility]) Systolic blood pressure 154 mm[Hg] 154 mm[Hg] e CW1 ([facility]) Diastolic blood pressure 80 mm[Hg] 80 mm[Hg] eCW1 ([facility]) Systolic blood pressure 136 mm[Hg] 136 mm[Hg] M EDENT ([facility]) Body mass index (BMI) [Ratio] 26.7 kg/m2 26.7 k g/m2 [facility] ([facility]) Diastolic blood pressure 72 mm[Hg] 72 mm[Hg] [facility] ([facility]) Heart rate 78 /min 78 /min [facility] ([facility]) Body height 66.50 [in_i] 66.50 [in_i] [facility] ([facility]) 5'6.50" Body weight 168.00 [lb_av] 168.00 [lb_av] MEDEN T ([facility]) Oxygen saturation in Arterial blood by Pulse oximetry 98 % 98 % [facility] ([facility])
--- OUTSIDE RECORDS SUMMARY | 2021-03-05 10:05 | CCD | Continuity of Care Document ---
Author Author Sadiq AZUL PA Organization Unknown Address [address] [place] [address] Phone [phone] Care Team Providers Care Program Project Analyst Name Role Phone Axel Lake MD @ [facility] Int AUTM Problems Description No Information Available [...] lb BMI (Body Mass Index) 27.3 kg/m2 Keo Body Weight 142 lb Weight 78.019 kg BSA (Body Surface Area) 1.89 m2 01/05/2021 10:55am BP Systolic 135 mmHg BP Diastolic 74 mmHg Body Temperature 98.4 F Height 66.5 inches 5'6.50" Weight 171.38 lb BMI (Body Mass Index) 27.2 kg/m2 Keo Body Weight 142 lb Weight 77.736 kg BSA (Body Surface Area) 1.88 m2 Results Test Acquired Date Facility Test Result H/L Range Note Laboratory test finding 01/21/2021 [facility] [address] [place] [address] [phone] Pathology Request For Service (SEE NOTE) 1 [...] 1053 Procedures Date Code Description Status 01/21/2021 52871 Colonoscopy W/ Poly Completed 01/21/2021 86827 Endoscopy Upper GI Remove Tumor/ Polyp/Lesion Snare Technique Completed 01/21/2021 24211 Endoscopy Upper GI Balloon Dilat ion Of Esophagus Completed 01/05/2021 81355 Office/Outpatient New Moderate M DM 45-59 Minutes Completed Medical Devices Description No Information Available Encounters Type Date Location Provider Dx Diagnosis Office Visit 01/05/2021 10:30a [facility] VENKAT Massey Z86.010 Personal [...] D12.6 Benign neoplasm of colon, unspec ified Irvign Morrell M.D. 01/21/2021 K31.7 Polyp of stomach [...] ps VENKAT Pena 01/05/2021 R13.10 Dysphagia, unspecified VNEKAT Massey 01/05/2021 K57.30 Diverticulosis of la rge [...]
--- OUTSIDE RECORDS SUMMARY | 2021-03-05 10:05 | CCD | Continuity of Care Document ---
Author Author Sadiq AZUL PA Organization Unknown Address [address] [place] [address] Phone [phone] Care Team Providers Care Lens Finisher Name Role Phone Axel Lake MD @ [facility] Int AUTM [phone] Problems Description No Information Available Social History [...] lb BMI (Body Mass Index) 27.3 kg/m2 C[place] Body Weight 142 lb Weight 78.019 kg BSA (Body Surface Area) 1.89 m2 01/05/2021 10:55am BP Systolic 135 mmHg BP Diastolic 74 mmHg Body Temperature 98.4 F Height 66.5 inches 5'6.50" Weight 171.38 lb BMI (Body Mass Index) 27.2 kg/m2 [place] Body Weight 142 lb Weight 77.736 kg BSA (Body Surface Area) 1.88 m2 Results Test Acquired Date Facility Test Result H/L Range Note Laboratory test finding 01/21/2021 [facility] [address] [place], [place] [id number] [phone] Pathology Request For Service (SEE NOTE) 1 [...] 1053 Procedures Date Code Description Status 02/01/2021 22659 Office/Outpatient Established Mo d MDM 30-39 Min Completed 01/21/2021 30329 Colonoscopy W/ Poly Completed 01/21/2021 48238 Endoscopy Upper GI Remove Tumor/ Polyp/Lesion Snare Technique Completed 01/21/2021 96636 Endoscopy Upper GI Balloon Dilat ion Of Esophagus Completed 01/05/2021 42278 Office/Outpatient New Moderate M DM 45-59 Minutes Completed Medical Devices Description No Information Available Encounters Type Date Location Provider Dx Diagnosis Office Visit 02/01/2021 1:30p [facility] VENKAT Massey D12.6 Benign neoplasm of colon, unspecified K21.00 Gastro-esophageal reflux dis with esophagitis, without bleed 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
--- OUTSIDE RECORDS SUMMARY | 2021-03-05 10:05 | CCD | Continuity of Care Document ---
Author Author Sadiq BARNES DUBLIN DO Organization Unknown Address [address] [place] [address] Phone [phone] Care Team Providers Care Ventilating Engineer Name Role Phone Axel Barnes JR, MD AUTM Unavailable Roque Castillo M.D. AUTM [phone] Problems Active Problems Provider Date Benign prostatic hyperplasia without outflow obstruction RICHARD Elena Onset: 11/28/2011 Chronic obstructive lung disease RICHARD Joseph Onse t: 11/28/2011 Gout RICHARD Joseph Onset: 11/28/2011 Alcohol abuse RICHARD Joseph Onset: 11/28/2011 Tobacco user RICHARD Joseph Onset: 11/28/2011 Old myocardial infarction Jose Lopes, LANGUAGE TRANSLATOR Onset: 016 Raised prostate specific antigen Axel Barnes MD Onset : 05/13/2019 Social History Type Date Description Comments Sex Unknown ETOH Use Currently consumes alcohol He dr karis about a case of beer a week Tobacco Use Start: Unknown End: Unknown Patient is a former smoker He quit smoking in the summer of 2016. He smoked a 1/2 a pack plus of cigarettes for about 60 years Allergies, Adverse Reactions, Alerts Description No Known Drug Allergies Medications Active Medications SIG Qnty Indications Ordering Provide r Date Atorvastatin Calcium 20mg Tablets Take One Tablet By Mouth Every Day 90tabs Axel Barnes MD 02/25/2016 Allopurinol 100mg Tablets Take Two Tablets By Mouth Every Day 180tabs Axel Barnes MD 010 Finasteride 5mg Tablets 1 by mouth every day 30tabs Axle Barnes MD Aspirin [address] Escobar by mouth every day Unknown Medications Administered in Office Medication SIG Qnty Indications Ordering Provider Date Covid-19 vaccine, Unspecified Inj ection Unknown 08/09/2020 Covid-19 vaccine, Unspecified Inj ection Unknown 07/15/2020 Immunization Adminstration,1 Vaccine/Tox oid Injection Axel Barnes MD 2019 Immunizations CPT Code Status Date Vaccine Lot # U-Flu Given 02/02/2020 Influenza,Unspecified 43985 Given 11/18/2019 Adacel- Tetanus Diphtheria P ertussis (Age64 & Under) [id number] Given 03/19/2018 Shingrix Zoster Vaccine (HZV), Recombinant, Subunit, Adjuvanted U-Flu Given 03/07/2018 Influenza,Unspecified 98008 Given 01/01/2018 Shingrix U-Pneum Given 02/02/2017 Pneumococcal,Unspecified U-PneuC Given 02/03/2016 Prevnar 13 93056 Given 02/07/2013 Zostavax 23090 Given 11/02/2009 Pneumovax 23 Vital Signs Date Vital Result Comment 11/24/2020 9:25am BP Systolic 136 mmHg BP Diastolic 80 mmHg Height 66.50 inches 5'6.50" Weight 169.12 lb BMI (Body Mass Index) 26.9 kg/m2 05/19/2020 9:05am BP Systolic 136 mmHg BP Diastolic 72 mmHg Heart Rate 78 /min Height 66.50 inches 5'6.50" Weight 168.00 lb O2 % BldC Oximetry 98 % BMI (Body Mass Index) 26.7 kg/m2 Results Test Acquired Date Facility Test Result H/L Range Note Coronavirus 2019 Nasopharygeal 01/17/2021 [facility] [address] [place], [place] [address] [phone] Coronavirus 2019 Nasopharygeal ASSAY INFORMATIO <SEE N OTE> 1 Complete Blood Count 11/24/2020 [facility] Hvac Project Engineer: [place] [address] [phone] WBC 6.8 x10*3/UL 4.1 - 10.9 RBC 5.02 x10*6/UL 4.20 - 6.30 Hemoglobin 15.5 g/dL 12.0 - 18.0 Hematocrit 46.5 % 37.0 - 51.0 MCV 92.6 fL 80.0 - 97.0 MCH 30.9 pg 26.0 - 32.0 MCHC 33.4 g/dL 31.0 - 38.0 RDW 13.7 % 11.6 - 13.7 PLT 238 x10*3/UL 140 - 440 MPV 7.7 FL Low 7.8 - 11.0 Lymph % 30.1 % 10.0 - 58.5 Mid % 6.9 % 1.7 - 9.3 Neut % 63.0 % 37.0 - 92.0 Lymph # 2.0 x10*3/UL 0.6 - 4.1 Mid # 0.5 x10*3/UL 0.1 - 0.6 Neut # 4.3 x10*3/UL 2.0 - 7.8 Comprehensive Chem Profile 11/24/2020 [facility] H[facility] Project Engineer: [place] [address] [phone] Glucose 103 mg/dL High 74 - 99 2 BUN 21 mg/dL High 7 - 18 Creatinine 0.8 mg/dL 0.6 - 1.3 Sodium 138 mEq/L 136 - 145 Potassium 4.5 mEq/L 3.5 - 5.1 Chloride 104 mEq/L 98 - 107 Carbon Dioxide 22 mEq/L 21 - 32 Calcium 9.5 mg/dL 8.5 - 10.1 Alk. Phosphatase 70 mg/dL 46 - 116 Total Bilirubin 0.6 mg/dL 0.2 - 1.0 Ast (Sgot) 25 U/L 15 - 37 Alt (SGPT) 58 U/L 12 - 78 Albumin 4.2 g/dL 3.4 - 5.0 Total Protein 7.1 g/dL 6.4 - 8.2 A/G Ratio 1.45 CALC 1.00 - 1.90 GFR >= 60 mL/min >60 GFR >= 60 mL/min >60 3 Lipid Profile 11/24/2020 [facility] , Hvac Project Engineer: [place] [address] [phone] Cholesterol 160 mg/dL 131 - 200 Triglycerides 158 mg/dL High 30 - 150 HDL Cholesterol 57 mg/dL 35 - 60 LDL (Calculated) 71 CALC 50 - 159 Laboratory test finding 11/24/2020 [facility] Hvac Project Engineer: [place] [address] [phone] PSA 1.55 ng/mL <4.00 4 1 ASSAY INFORMATION: Real Time RT-PCR NOTE: The COVID-19 assay has been cleared by the U.S. Food and Drug Administration under the Emergency Use Authorization (EUA). [facility] are designated as high complexity laboratories by the Clinical Laboratory Improvement Amendments of 1988(CLIA) and are qualified to perform this test. Not Detected 2 100-125 mg/dL PRE-DIABET ES/FASTING >126 mg/dL DIABETES/FASTING 3 CHRONIC KIDNEY DISEASE STAGI NG PER NKF STAGE I & II GFR >= 60 NORMAL TO MILDLY DECREASED STAGE III GFR 30-59 MODERATELY DECREASED STAGE IV GFR 15-29 SEVERELY DECREASED STAGE V GFR <15 VERY LITTLE GFR LEFT ESRD GFR <15 ON SECURITY FLEX UTILITY OFFICER 4 This assay was performed on the Siemens Tunii EXL using the B- Galactosidase/CPRG methodology and should not be compared interchangeably with other methods. The PSA should not be used alone as a screening test for the presence or absence of malignant disease. Procedures Date Code Description Status 11/30/2020 72024 Chronic Care MGMT 20 Mins Clinical Staff Time Per Calendar Month Completed 11/24/2020 19185 Office/Outpatient Established Mo d MDM 30-39 Min Completed 10/08/2020 95793 Chronic Care MGMT 20 Mins Clinical Staff Time Per Calendar Month Completed 10/08/2020 93730 Chronic Care Management Services Ea Addl 20 Min Completed 08/03/2020 29113 Chronic Care MGMT 20 Mins Clinical Staff Time Per Calendar Month Completed 08/03/2020 29214 Chronic Care Management Services Ea Addl 20 Min Completed 03/20/2019 [id number] Diabetic Retinal Eye Exam Comple jose alejandro 03/14/2016 [id number] Colonoscopy Completed 02/13/2016 [id number] Colonoscopy Completed 02/07/2011 [id number] Colonoscopy Completed 07/02/2007 [id number] Colonoscopy Completed 03/06/2006 [id number] Colonoscopy Completed Medical Devices Description No Information Available Encounters Type Date Location Provider Dx Diagnosis Office Visit 11/24/2020 9:40a [facility] 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, cigaret michael, in remission R73.09 Other abnormal glucose Z86.010 Personal history of colonic polyps E78.00 Pure hypercholesterolemia, u nspecified Z13.89 Encounter for screening for other disorder Assessments Date Code Description Provider 11/30/2020 N40.0 Benign prostatic hyp erplasia without lower urinary tract symptoms Axel Barnes MD 11/30/2020 E78.00 Pure hypercholesterolemia, unspe cified Axel Barnes MD 11/30/2020 Z86.010 Personal history of colonic poly ps Axel Barnes MD 11/24/2020 N40.0 Benign prostatic hyp erplasia without lower urinary tract symptoms Axel Barnes MD 11/24/2020 R97.20 Elevated prostate specific antig en [PSA] Axel Barnes MD 11/24/2020 E79.0 Hyperuricemia withou t signs of inflammatory arthritis and tophaceous disease Axel Barnes MD 11/24/2020 R91.1 Solitary pulmonary nodule Oral jamari Barnes MD 11/24/2020 F17.211 Nicotine dependence, cigarettes, in remission Axel Barnes MD 11/24/2020 R73.09 Other abnormal glucose Axel Barnes MD 11/24/2020 Z86.010 Personal history of colonic poly ps Axel Barnes MD 11/24/2020 E78.00 Pure hypercholesterolemia, unspe cified Axel Barnes MD 11/24/2020 Z13.89 Encounter for screening for othe r disorder Axel Barnes MD 10/08/2020 N40.0 Benign prostatic hyp erplasia without lower urinary tract symptoms Axel Barnes MD 10/08/2020 E78.00 Pure hypercholesterolemia, unspe cified Axel Barnes MD 10/08/2020 J44.9 Chronic obstructive pulmonary di sease, unspecified Axel Barnes MD 08/03/2020 N40.0 Benign prostatic hyp erplasia without lower urinary tract symptoms Axel Barnes MD 08/03/2020 E78.00 Pure hypercholesterolemia, unspe cified Axel Barnes MD 08/03/2020 F17.211 Nicotine dependence, cigarettes, in remission Axel Barnes MD 08/03/2020 J44.9 Chronic obstructive pulmonary di sease, unspecified Axel Barnes MD Plan of Treatment Future Appointment(s):* 05/27/2021 9:00 am - [facility] 11/18/2019 - Axel Barnes MD* E79.0 Hyperuricemia without signs of inflammatory arthritis and tophaceous disease * N40.0 Benign prostatic hyperplasia without lower urinary tract sym * F17.211 Nicotine dependence, cigarettes, in remission* Comments:* Smoking cessation discussed. * E78.00 Pure hypercholesterolemia, unspecified * R97.20 Elevated prostate specific antigen [PSA] * Z86.010 Personal history of colonic polyps * Z13.89 Encounter for screening for other disorder * Z23 Encounter for immunization Functional Status Description No Information Available Mental Status Description No Information Available Referrals Refer to Reason for Referral Status Appt Date Irving Morrell MD CONSULT FOR SCREENING COLONOSCOPY Patient Notified 01/05/2021 [facility] [address] [facility] [address] [place] [address] [phone] [facility] Chest CT Screening Program CT EARLY CANCER LUNG SCREENING EX AM Created [address] [place] [address] [phone]
[2021-03-05] MEDS ORDERED: FINA5TAB2 PO (11:56)
[2021-03-05] MEDS ORDERED: ATOR1TAB19 PO (11:56)
--- OUTSIDE RECORDS SUMMARY | 2021-03-05 12:12 | CCD ---
Author Author [facility] Organization [facility] Address Unknown Phone Unavailable Care Team Providers Care Rough Rounder Machine Name Role Phone Cresencio Lake MD Unavailable [...] Unavailable Unavailable Cresencio Lake MD Unavailable Unavailable GatzkeCresencio MD Unavailable Unavailable GatzkeCresencio MD Unavailable Unavailable JayaCresencio MD Unavailable Unavailable GatzkeCresencio MD Unavailable Unavailable JayaCresencio MD Unavailable Unavailable GatzkeCresencio MD Unavailable Unavailable JayaCresencio MD Unavailable Unavailable GatzkeCresencio MD Unavailable Unavailable GatzkeCresencio MD Unavailable Unavailable JayaCresencio MD Unavailable Unavailable JayaCresencio MD Unavailable Unavailable JayaCresencio MD Unavailable Unavailable JayaCresencio MD Unavailable Unavailable GatzkeCresencio MD Unavailable Unavailable GatzkeCresencio MD Unavailable Unavailable GatzkeCresencio MD Unavailable Unavailable JayaCresencio MD Unavailable Unavailable GatzkeCresencio MD Unavailable Unavailable JayaCresencio MD Unavailable Unavailable GatzkeCresencio MD Unavailable Unavailable JayaCresencio MD Unavailable Unavailable GatzkeCresencio MD Unavailable Unavailable GatzkeCresencio MD Unavailable Unavailable JayaCresencio MD Unavailable Unavailable JayaCresencio MD Unavailable Unavailable GatzkeCresencio MD Unavailable Unavailable GatzkeCresencio MD Unavailable Unavailable GatzkeCresencio MD Unavailable Unavailable GatzkeCresencio MD Unavailable Unavailable GatzkeCresencio MD Unavailable Unavailable JayaCresencio MD Unavailable Unavailable GatzkeCresencio MD Unavailable Unavailable JayaCresencio MD Unavailable Unavailable JayaCresencio MD Unavailable Unavailable JayaCresencio rosas MD Unavailable Unavailable JayaCresencio rosas MD Unavailable Unavailable GatzkeCresencio MD Unavailable Unavailable GatzkeCresencio MD Unavailable Unavailable GatzkeCresencio orsas MD Unavailable Unavailable JayaCresencio MD Unavailable Unavailable JayaCresencio rosas MD Unavailable Unavailable JayaCresencio rosas MD Unavailable Unavailable JayaCresencio rosas MD Unavailable Unavailable GatzkeCresencio MD Unavailable Unavailable GatzkeCresencio MD Unavailable Unavailable JayaCresencio MD Unavailable Unavailable JayaCresencio MD Unavailable Unavailable GatzkeCresencio MD Unavailable Unavailable JayaCresencio MD Unavailable Unavailable JayaCresencio MD Unavailable Unavailable JayaCresencio MD Unavailable Unavailable Matthews, L Nicki RPA Unavailable [...] is protected by Article 27-F of the [facility] Public Health law. If you continue you may have access to information: Regarding HIV / AIDS; Provided by facilities licensed or operated by the [facility] Office of Mental Health; or Provided by the [facility] Office for People With Developmental Disabilities. If such information is present, then the following [facility] mandated warning applies: This information has been [...] law may result in a fine or detention sentence or both. A general authorization for the release of medical or other information is NOT sufficient authorization for further disc losure. Encounters Encounter Providers Location Date Indications Data Source(s ) Outpatient Attender: Nicki Matthews RPA [place] 02/01/2021 01:30:00 PM EDT [facility] Outpatient Attender: Nicki Kurtz/[place] 01/05/2021 10:30:00 AM EDT [facility] ([facility] Outpatient Attender: Axel Cardenas 0 11/24/2020 09:40:00 AM EDT [facility] ([facility] ) [place] [address] [address] 06/15/2020 12:00:00 AM EST eCW1 ([facility] [place] [address] [address] 06/15/2020 12:00:00 AM EST eCW1 ([facility]) Outpatient Attender: Axel Cardenas 1 08:00:00 AM EST [facility] ([facility] ) Immunizations Vaccine Date Status Description Data Source(s) COVID-19 VACCINE Moderna 08/09/2020 12:00:00 AM EDT completed [facility] Vaccine Series Complete: YESThis Data wa s Submitted to [facility] Via [facility]. COVID-19 VACCINE, MRNA-1273, LNP-S (MODERNA)/PF 08/09/2020 1 2:00:00 AM EDT completed [facility] COVID-19 VACCINE, MRNA-1273, LNP-S (MODERNA)/PF 07/15/2020 1 2:00:00 AM EST completed [facility] This CVX code allows reporting of a vacc ination when formulation is unknown (for example, when recording a Influenza vaccination when noted on a vaccination card) 02/02/2020 08:28:00 AM EDT completed VALENTIN Marcos ([facility]) INFLUENZA VACCINE QUADRIVALENT (65 YR UP)/MF59 C.1/PF 02/02/2020 12:00:00 AM EDT completed [facility] Medications Medication Brand Name Start Date Product Form Dose Route Admi nistrative Instructions Pharmacy Instructions Status Indications Reaction Description Data Source(s) 40 mg 02/02/2021 12:00:00 AM EDT capsule,delayed release (DR/EC) 30 TAKE ONE CAPSULE BY MOUTH EVERY DAY TAKE ONE CAPSULE BY MOUTH EVERY DAY SOLD: 02/12/2021 [facility] Omeprazole 40 MG Delayed Release Oral Capsule Omeprazole 02/01/2021 12:00:00 AM EDT ORAL active [facility] ([facility], ) 240 mcg/0.7 mL 01/18/2021 12:00:00 AM EDT syringe 0 INJECT DIRECTED INJECT DIRECTED SOLD: 01/18/2021 [facility] SUPREP BOWEL PREP KIT 17.5-3.13-1.6 gram SODIUM, POTASSIUM,M AG SULFATES 01/12/2021 12:00:00 AM EDT recon [facility]n 354 TAKE PER DOCTOR'S BOWEL PREP INSTRUCTIONS TAKE PER DOCTOR'S BOWEL PREP INSTRUCTIONS SOLD: 01/18/2021 [facility] Suprep Bowel Prep Kit Suprep Bowel Prep Kit 01/12/2021 12:00:00 AM EDT completed [facility] ([facility], ) 100 mg 09/11/2020 12:00:00 AM EDT tablet 180 TAKE TWO TABLETS BY MOUTH EVERY DAY TAKE TWO TABLETS BY MOUTH EVERY DAY SOLD: 09/11/2020 [facility] 100 mg 09/11/2020 12:00:00 AM EDT tablet 180 TAKE TWO TABLETS BY MOUTH EVERY DAY TAKE TWO TABLETS BY MOUTH EVERY DAY SOLD: 12/10/2020 [facility] Covid-19 vaccine, Unspecified 08/09/2020 12:00:00 AM EDT [...] Unspecified 07/15/2020 12:00:00 AM EST completed [facility]) Medication administered onsite Finasteride 5 MG Oral [...] type / Coverage type Policy ID Covered green party ID Covered green party's relationship to quintana Policy Quintana Plan Information Medicare Natl Govt Serv Medicare Primary 1408 Self MEDICARE [id number] SP [id number] A Medicare Natl Govt Servic Medicare Primary [id number] Self 0 [id number] Medicare Natl Govt Serv Medicare Primary [id number] Self 0 [id number] Medicare Natl Govt [facility] Medicare Primary [id number] Self 0 [id number] A Medicaid Medigap Part B [id number] 4.0 Self [id number] ANSI-Medicare Part B [id number] ANSI-Medicaid [id number] ANSI-Medicare Part B [id number] ANSI-Medicare Part B [id number] ANSI-Medicare Part B [id number] [facility] MEDICAID [id number] SP [id number] E Medicaid Medigap Part B [id number] 4.0 Self [id number] Medicaid Medigap Part B [id number] 4.0 Self [id number] MEDICARE [id number] SP [id number] A Medicaid Medigap Part B [id number] Self 1 1 Medicaid [place] Medigap Part B [id number] Self Medicare [facility] Medicare Primary [id number] Self [id number] ANSI-Medicaid [id number] MEDICARE [id number] SP [id number] EMEDNY [id number] SP [id number] MEDICAID M [id number] S [id number] MEDICARE C [id number] S [id number] MEDICAID [id number] SP [id number] Problems, Conditions, and Diagnoses Code Display Name Description Problem Type Effective Dates Data Source(s) 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 BPH loc w urin obs/LUTS Problem 06/14/2020 12:00:00 AM EST eCW1 ([facility]) Surgeries/Procedures Procedure Description Date Indications Data Source(s) OFFICE OUTPATIENT VISIT 25 MINUTES 02/01/2021 12:00:00 AM EDT [facility] ([facility], ) Endoscopy Upper GI Balloon Dilation Of Esophagus 01/21 12:00:00 AM EDT [facility] ([facility], ) Endoscopy Upper GI Remove Tumor/Polyp/Lesion Snare Technique 01/21/2021 12:00:00 AM EDT [facility] ([facility] Colonoscopy W/ Poly 01/21/2021 12:00:00 AM EDT [facility] ([facility], ) OFFICE OUTPATIENT NEW 45 MINUTES 01/05/2021 12:00:00 A M EDT [facility] ([facility], ) Chronic Care MGMT 20 Mins Clinical Staff Time Per Calendar M [facility] 11/30/2020 12:00:00 AM EDT [facility] ([facility] ) OFFICE OUTPATIENT VISIT 25 MINUTES 11/24/2020 12:00:00 AM EDT [facility] ([facility]) Chronic Care Management Services Ea Addl 20 Min 2020 12:00:00 AM EDT [facility] ([facility]) Chronic Care MGMT 20 Mins Clinical Staff Time Per Calendar M [facility] 10/08/2020 12:00:00 AM EDT [facility] ([facility] ) Chronic Care Management Services Ea Addl 20 Min 2020 12:00:00 AM EDT [facility] ([facility]) Chronic Care MGMT 20 Mins Clinical Staff Time Per Calendar M [facility] 08/03/2020 12:00:00 AM EDT [facility] ([facility] ) Chronic Care Management Services Ea Addl 20 Min 2020 12:00:00 AM EST [facility] Chronic Care MGMT 20 Mins Clinical Staff Time Per Calendar M [facility] 07/16/2020 12:00:00 AM EST [facility] ([facility] ) Results ID Date Data Source [id number] 01/21/2021 12:46:00 PM EDT [facility] ([facility], ) Name Value Range Interpretation Code Description Data Mary Carmen rce(s) Supporting Document(s) Surgical pathology study Laboratory test result [facility] ([facility], ) FINAL DIAGNOSIS A-Gastric polyp, polypectomy: Polypoid fragments [...] 0.2 cm. in aggregate. All in one. -FRANCINE 01/25/2021 - 1048 Signed JOSESITO KHAN MD 01/25/2021 1053 ID Date Data Source [id number] 01/17/2021 09:45:00 AM EDT [facility] Name Value Range Interpretation Code Description Data Mary Carmen rce(s) Supporting Document(s) SARS-CoV-2 (COVID-19) RNA [Presence] in Respiratory specimen by ALY with probe detection Not Detected [facility] This lab was ordered by [facility] and reported by [employer] ID Date Data Source [id number] 01/17/2021 09:45:00 AM EDT [facility] ([facility] Name Value Range Interpretation Code Description Data Mary Carmen rce(s) Supporting Document(s) Coronavirus 2019 Nasopharygeal Laboratory test result [facility] ([facility]) ASSAY INFORMATION: Real Time RT-PCR NOTE: The COVID-19 assay has been cleared by the U.S. Food and Drug Administration under the Emergency Use Authorization (EUA). [facility] and [facility] are designated as high complexity laboratories by the Clinical Laboratory Improvement Amendments of 1988(CLIA) and are qualified to perform this test. Not Detected ID Date Data Source [id number] 11/24/2020 09:41:00 AM EDT [facility] ([facility] Name Value Range Interpretation Code Description Data Mary Carmen rce(s) Supporting Document(s) Prostate specific Ag [Mass/volume] in Serum or Plasma 1.55 ng/mL [facility] ([facility] This assay was performed on the Siemens Dimension EXL using the B- Galactosidase/CPRG methodology and should not be compared interchangeably with other methods. The PSA should not be used alone as a screening test for the presence or absence of malignant disease. ID Date Data Source [id number] 11/24/2020 09:41:00 AM EDT [facility] ([facility] Name Value Range Interpretation Code Description Data Mary Carmen rce(s) Supporting Document(s) Cholesterol [Mass/volume] in Serum or Plasma 160 mg/dL 131-200 [facility] ([facility]) Triglyceride [Mass/volume] in Serum or Plasma 158 mg/dL 30-150 [facility] ([facility]) Cholesterol in LDL [Mass/volume] in Serum or Plasma by calcu lation 71 CALC 50-159 [facility] ([facility]) Cholesterol in HDL [Mass/volume] in Serum or Plasma 57 mg/dL 35-60 [facility] ([facility]) ID Date Data Source [id number] 11/24/2020 09:41:00 AM EDT [facility] ([facility]) Name Value Range Interpretation Code Description Data Mary Carmen rce(s) Supporting Document(s) Glucose [Mass/volume] in Serum or Plasma 103 mg/dL 74-99 [facility] ([facility]) 100-125 mg/dL PRE-DIABETES/FASTING >126 mg/dL DIABETES/FASTING Creatinine 0.8 mg/dL 0.6-1.3 [facility] ([facility]) Urea nitrogen [Mass/volume] in Serum or Plasma 21 mg/dL 7-18 [facility] ([facility]) Sodium [Moles/volume] in Serum or Plasma 138 meq/L 136-145 [facility] ([facility]) Potassium [Moles/volume] in Serum or Plasma 4.5 meq/L 3.5-5.1 [facility] ([facility]) Carbon dioxide, total [Moles/volume] in Serum or Plasma 22 meq/L 21 -32 [facility] ([facility]) Chloride [Moles/volume] in Serum or Plasma 104 meq/L 98-107 [facility] ([facility]) Calcium [Mass/volume] in Serum or Plasma 9.5 mg/dL 8.5-10.1 [facility] ([facility]) Alkaline phosphatase isoenzyme [Units/volume] in Serum or Pl asma 70 mg/dL 46-116 [facility] ([facility]) Total Bilirubin 0.6 mg/dL 0.2-1.0 [facility] ([facility]) Aspartate aminotransferase [Enzymatic activity/volume] in Serum or Plasma 25 U/L 15-37 [facility] ([facility] ) Alanine aminotransferase [Enzymatic activity/volume] in Seru m or Plasma 58 U/L 12-78 [facility] ([facility]) Albumin [Mass/volume] in Serum or Plasma 4.2 g/dL 3.4-5.0 [facility] ([facility]) A/G Ratio 1.45 CALC 1.00-1.90 [facility] ([facility]) Glomerular filtration rate/1.73 sq M pre dicted among non-blacks [Volume Rate/Area] in Serum or Plasma by Creatinine-based formula (MDRD) Laboratory test result [facility] ([facility] Proteinase 3 Ab [Units/volume] in Serum 7.1 g/dL 6.4-8.2 [facility] ([facility] Glomerular filtration rate/1.73 sq M pre dicted among blacks [Volume Rate/Area] in Serum or Plasma by Creatinine-based formula (MDRD) Laboratory test result [facility] ([facility]) <content>CHRONIC KIDNEY DISEASE STAGING PER NKF</content>
<content></content>
<content>STAGE I & II GFR >= 60 NORMAL TO MILDLY DECREASED</content>
<content>STAGE III GFR 30-59 MODERATELY DECREASED</content>
<content>STAGE IV GFR 15-29 SEVERELY DECREASED</content>
<content>STAGE V GFR <15 VERY LITTLE GFR LEFT</content>
<content>ESRD GFR <15 ON ELECTRICIAN CHIEF</content>
<content></content> ID Date Data Source [id number] 11/24/2020 09:41:00 AM EDT [facility] ([facility] Name Value Range Interpretation Code Description Data Mary Carmen rce(s) Supporting Document(s) Erythrocytes [#/volume] in Blood by Automated count 5.02 x10*6/UL 4.2 0-6.30 [facility] ([facility] Leukocytes [#/volume] in Blood by Automated count 6.8 x10*3/UL 4.1-10 .9 [facility] ([facility] MCV 92.6 fL 80.0-97.0 [facility] ([facility]) Hemoglobin [Mass/volume] in Blood 15.5 g/dL 12.0-18.0 [facility] ([facility] Hematocrit [Volume Fraction] of Blood by Automated count 46.5 % 3 7.0-51.0 [facility] ([facility] MCH 30.9 pg 26.0-32.0 [facility]) MCHC 33.4 g/dL 31.0-38.0 [facility] ([facility]) Erythrocyte distribution width [Ratio] by Automated count 13.7 % 11.6-13.7 [facility] ([facility]) Platelets [#/volume] in Blood by Automated count 238 x10*3/UL 140-440 [facility] ([facility]) MPV 7.7 FL 7.8-11.0 [facility] ([facility]) Lymph % 30.1 % 10.0-58.5 [facility] ([facility]) Lymph # 2.0 x10*3/UL 0.6-4.1 [facility] ([facility]) Neut % 63.0 % 37.0-92.0 [facility] ([facility]) Mid % 6.9 % 1.7-9.3 [facility] ([facility]) Neut # 4.3 x10*3/UL 2.0-7.8 [facility] ([facility]) Mid # 0.5 x10*3/UL 0.1-0.6 [facility] ([facility]) ID Date Data Source [id number] 06/27/2020 12:00:00 AM EST [facility] Name Value Range Interpretation Code Description Data Mary Carmen rce(s) Supporting Document(s) SARS-CoV2 Rapid Antigen Negative [facility] This lab was ordered by [facility] and reported by [facility]. ID Date Data Source [id number] 05/19/2020 09:22:00 AM EST [facility] ([facility]) Name Value Range Interpretation Code Description Data Mary Carmen rce(s) Supporting Document(s) Urate [Mass/volume] in Serum or Plasma 4.7 mg/dL 3.5-7.2 [facility] ([facility]) ID Date Data Source [id number] 05/19/2020 09:21:00 AM EST [facility] ([facility]) Name Value Range Interpretation Code Description Data Mary Carmen rce(s) Supporting Document(s) Cholesterol [Mass/volume] in Serum or Plasma 143 mg/dL 131-200 [facility] ([facility]) Triglyceride [Mass/volume] in Serum or Plasma 47 mg/dL 30-150 [facility] ([facility]) Cholesterol in HDL [Mass/volume] in Serum or Plasma 79 mg/dL 35-60 [facility] ([facility]) Cholesterol in LDL [Mass/volume] in Serum or Plasma by calcu lation 55 CALC 50-159 [facility] ([facility]) ID Date Data Source [id number] 05/19/2020 09:21:00 AM EST [facility] ([facility]) Name Value Range Interpretation Code Description Data Mary Carmen rce(s) Supporting Document(s) Urea nitrogen [Mass/volume] in Serum or Plasma 18 mg/dL 7-18 [facility] ([facility]) Glucose [Mass/volume] in Serum or Plasma 94 mg/dL 74-99 [facility] ([facility]) 100-125 mg/dL PRE-DIABETES/FASTING >126 mg/dL DIABETES/FASTING Creatinine 1.0 mg/dL 0.6-1.3 [facility] ([facility]) Sodium [Moles/volume] in Serum or Plasma 138 meq/L 136-145 [facility] ([facility]) Potassium [Moles/volume] in Serum or Plasma 4.8 meq/L 3.5-5.1 [facility] ([facility]) Chloride [Moles/volume] in Serum or Plasma 102 meq/L 98-107 [facility] ([facility]) Carbon dioxide, total [Moles/volume] in Serum or Plasma 24 meq/L 21 -32 [facility] ([facility]) Calcium [Mass/volume] in Serum or Plasma 8.9 mg/dL 8.5-10.1 [facility] ([facility]) Total Bilirubin 0.5 mg/dL 0.2-1.0 [facility] ([facility]) Alkaline phosphatase isoenzyme [Units/volume] in Serum or Pl asma 68 mg/dL 46-116 [facility] ([facility]) Aspartate aminotransferase [Enzymatic activity/volume] in Serum or Plasma 30 U/L 15-37 [facility] ([facility] ) Albumin [Mass/volume] in Serum or Plasma 4.1 g/dL 3.4-5.0 [facility] ([facility]) Alanine aminotransferase [Enzymatic activity/volume] in Seru m or Plasma 56 U/L 12-78 [facility] ([facility]) Proteinase 3 Ab [Units/volume] in Serum 7.0 g/dL 6.4-8.2 [facility] ([facility] A/G Ratio 1.41 CALC 1.00-1.90 [facility] Glomerular filtration rate/1.73 sq M pre dicted among blacks [Volume Rate/Area] in Serum or Plasma by Creatinine-based formula (MDRD) Laboratory test result [facility] ([facility] <content>CHRONIC KIDNEY DISEASE STAGING PER NKF</content>
<content></content>
<content>STAGE I & II GFR >= 60 NORMAL TO MILDLY DECREASED</content>
<content>STAGE III GFR 30-59 MODERATELY DECREASED</content>
<content>STAGE IV GFR 15-29 SEVERELY DECREASED</content>
<content>STAGE V GFR <15 VERY LITTLE GFR LEFT</content>
<content>ESRD GFR <15 ON ELECTRICIAN CHIEF</content>
<content></content> Glomerular filtration rate/1.73 sq M pre dicted among non-blacks [Volume Rate/Area] in Serum or Plasma by Creatinine-based formula (MDRD) Laboratory test result [facility] ([facility] ID Date Data Source [id number] 05/19/2020 09:21:00 AM EST [facility] ([facility] Name Value Range Interpretation Code Description Data Mary Carmen rce(s) Supporting Document(s) Leukocytes [#/volume] in Blood by Automated count 8.5 x10*3/UL 4.1-10 .9 [facility] ([facility]) Erythrocytes [#/volume] in Blood by Automated count 4.76 x10*6/UL 4.2 0-6.30 [facility] ([facility] Hemoglobin [Mass/volume] in Blood 15.2 g/dL 12.0-18.0 [facility] ([facility] Hematocrit [Volume Fraction] of Blood by Automated count 43.7 % 3 7.0-51.0 [facility] ([facility]) MCV 91.8 fL 80.0-97.0 [facility] ([facility]) MCH 31.9 pg 26.0-32.0 [facility] [facility] MCHC 34.7 g/dL 31.0-38.0 [facility] ([facility]) Platelets [#/volume] in Blood by Automated count 271 x10*3/UL 140-440 [facility] ([facility]) Erythrocyte distribution width [Ratio] by Automated count 13.3 % 11.6-13.7 [facility] ([facility]) MPV 8.0 FL 7.8-11.0 [facility] ([facility]) Lymph % 19.5 % 10.0-58.5 [facility] ([facility]) Mid % 5.2 % 1.7-9.3 [facility] ([facility]) Neut % 75.3 % 37.0-92.0 [facility] ([facility] Lymph # 1.6 x10*3/UL 0.6-4.1 [facility] ([facility]) Mid # 0.5 x10*3/UL 0.1-0.6 [facility] ([facility]) Neut # 6.4 x10*3/UL 2.0-7.8 [facility] ([facility]) Procedure Social History Code Duration Value Status Description Data Source(s ) Smoking 06/15/2020 12:00:00 AM EST Former Smoker completed Former Smoker eCW1 ([facility]) Smoking 06/15/2020 12:00:00 AM EST Former Smoker completed Former Smoker W1 ([facility]) Vital Signs ID Date Data Source UNK Name Value Range Interpretation Code Description Data Source(s) Body weight 172.00 [lb_av] 172.00 [lb_av] MED[facility] T ([facility], ) Body height 66.5 [in_i] 66.5 [in_i] [facility] ([facility]) 5'6.50" Systolic blood pressure 148 mm[Hg] 148 mm[Hg] [facility] Diastolic blood pressure 76 mm[Hg] 76 mm[Hg] [facility] ([facility]) Heart rate 83 /min 83 /min [facility] ([facility]) Body temperature 98.3 [degF] 98.3 [degF] [facility] ([facility]) Body mass index (BMI) [Ratio] 27.3 kg/m2 27.3 k g/m2 [facility] [facility] ([facility]) [place] body weight 142 [lb_av] 142 [lb_av] MEDEN T ([facility]) Body weight 78.019 kg 78.019 kg [facility] ([facility]) Body surface area Derived from formula 1.89 m2 1.89 m2 [facility] ([facility]) Systolic blood pressure 135 mm[Hg] 135 mm[Hg] [facility] ([facility]) Diastolic blood pressure 74 mm[Hg] 74 mm[Hg] [facility] ([facility]) Body weight 171.38 [lb_av] 171.38 [lb_av] [facility] Body mass index (BMI) [Ratio] 27.2 kg/m2 27.2 k g/m2 [facility] ([facility]) Body temperature 98.4 [degF] 98.4 [degF] [facility] ([facility]) Body height 66.5 [in_i] 66.5 [in_i] [facility] ([facility]) 5'6.50" [place] body weight 142 [lb_av] 142 [lb_av] [facility] Body weight 77.736 kg 77.736 kg [facility] ([facility]) Body surface area Derived from formula 1.88 m2 1.88 m2 [facility] ([facility]) Body mass index (BMI) [Ratio] 26.9 kg/m2 26.9 k g/m2 [facility] ([facility]) Systolic blood pressure 136 mm[Hg] 136 mm[Hg] [facility] Diastolic blood pressure 80 mm[Hg] 80 mm[Hg] [facility] ([facility]) Body height 66.50 [in_i] 66.50 [in_i] [facility] ([facility]) 5'6.50" Body weight 169.12 [lb_av] 169.12 [lb_av] MED[facility] T ([facility]) Body weight 169.2 [lb_av] 169.2 [lb_av] eCW1 ([facility]) Body height 66 [in_i] 66 [in_i] eCW1 ([facility]) Body mass index (BMI) [Ratio] 27.31 kg/m2 27.31 kg/m2 eCW1 ([facility]) Heart rate 72 /min 72 /min eCW1 ([facility]) Respiratory rate 18 /min 18 /min eCW1 ([facility], 1928[facility]1983) Body temperature 97.9 [degF] 97.9 [degF] eCW1 ( [facility]) Systolic blood pressure 154 mm[Hg] 154 mm[Hg] e CW1 ([facility]) Diastolic blood pressure 80 mm[Hg] 80 mm[Hg] eCW1 ([facility]) Systolic blood pressure 136 mm[Hg] 136 mm[Hg] M JACINTA ([facility]) Body mass index (BMI) [Ratio] 26.7 kg/m2 26.7 k g/m2 [facility] ([facility]) Diastolic blood pressure 72 mm[Hg] 72 mm[Hg] [facility] ([facility]) Heart rate 78 /min 78 /min [facility] ([facility]) Body height 66.50 [in_i] 66.50 [in_i] [facility] ([facility]) 5'6.50" Body weight 168.00 [lb_av] 168.00 [lb_av] MEDEN T ([facility]) Oxygen saturation in Arterial blood by Pulse oximetry 98 % 98 % [facility] ([facility])
--- NOTE | 2021-03-05 12:52 | REP ---
INDICATION: hypertension COMPARISON: None. TECHNIQUE: Portable AP view of the chest FINDINGS: The mediastinum and cardiac silhouette are within normal limits for portable technique. The lung frost are clear without acute consolidation, effusion, or pneumothorax. Skeletal structures are intact. IMPRESSION: No acute cardiopulmonary process appreciated. <Electronically signed by Ming Rios > 03/05/21 [id number]
[2021-03-05 13:10] LABS: BASO % 0.5 % (0.0-1.0); EOS # 0.3 10^3/uL (0.0-0.5); EOS % 2.9 % (0.0-3.0); HEMATOCRIT 47.6 % (42.0-52.0); HEMOGLOBIN 15.6 g/dl (13.5-17.5); LYMPH % 22.3 % (24.0-44.0); MEAN CORPUSCULAR HEMOGLOBIN 31.4 pg (27.0-33.0); MEAN CORPUSCULAR HGB CONC 32.8 g/dl (32.0-36.5); MEAN CORPUSCULAR VOLUME 95.8 fl (80.0-96.0); MONO % 11.1 % (2.0-8.0); NEUTROPHILS # 5.5 10^3/uL (1.5-8.5); NEUTROPHILS % 62.6 % (36.0-66.0); PLATELET COUNT, AUTOMATED 219 10^3/uL (150-450); RED BLOOD COUNT 4.97 10^6/uL (4.30-6.10); WHITE BLOOD COUNT 8.7 10^3/uL (4.0-10.0)
[2021-03-05 13:56] LABS: ALT/SGPT 56 U/L (12-78); BILIRUBIN,DIRECT 0.1 MG/DL (0.0-0.2); BILIRUBIN,TOTAL 0.6 MG/DL (0.2-1.0); BLOOD UREA NITROGEN 22 MG/DL (7-18); CALCIUM LEVEL 8.9 MG/DL (8.8-10.2); CARBON DIOXIDE LEVEL 26 MEQ/L (21-32); CHLORIDE LEVEL 107 MEQ/L (98-107); CK-MB VALUE MASS 1.2 NG/ML (<3.6); CPK CREATINE PHOSPHOKINASE 84 U/L (39-308); CREATININE FOR GFR 0.86 MG/DL (0.70-1.30); GLOMERULAR FILTRATION RATE > 60.0 (>42); GLUCOSE, FASTING 95 MG/DL (70-100); MB/CK RELATIVE INDEX 1.43 (< OR =4); SODIUM LEVEL 138 MEQ/L (136-145); TOTAL PROTEIN 7.4 GM/DL (6.4-8.2); TROPONIN I < 0.02 NG/ML (< 0.10)
[2021-03-05 14:31] VITALS: BP 159/77
--- NOTE | 2021-03-06 19:21 | ECGEPIP ---
[facility] - ED Test Date: 2021-03-05 Pat Name: MILE GONZALEZ Department: Room: - Gender: Male Branch Operations Specialist: ERIKCMARY JANE : 1945 Requested By: MEGAN Slater Order Number: [id number] Reading MD: Houston Horton Measurements Intervals [place] Rate: 68 P: 43 VA: 168 QRS: -22 QRSD: 64 T: 31 QT: 374 QTc: 397 Interpretive Statements Normal sinus rhythm POOR R WAVE PROGRESSION NONSPECIFIC T WAVE ABNORMALITY(S) NO PRIORS FOR COMPARISON Electronically Signed on 03-06-2021 19:21:19 EDT by Houston Horton
== END 2021-03-05 14:38 | disposition home or self-care (01) ==
LOC: M ED 09:56
DX: I10 Essential (primary) hypertension (principal); E78.5 Hyperlipidemia, unspecified; M10.9 Gout, unspecified

== ENCOUNTER → 2021-05-27 | Outpatient (REF) | payer MEDICARE, MEDICAID ==
[~2021-05-27] MED LIST: ATOR1TAB19 PO; FINA5TAB2 PO
== END ==
LOC: M LAB REF 16:20
PROVIDERS: ATTEND Internal Medicine
DX: E79.0 Hyperuricemia without signs of inflammatory arthritis and tophaceous disease (principal)

== ENCOUNTER → 2022-05-18 | Outpatient (CLI) | payer MEDICARE, MEDICAID | LOC: M WUC 08:39 | PROVIDERS: ATTEND Internal Medicine | DX: M79.652 Pain in left thigh (principal); R22.42 Localized swelling, mass and lump, left lower limb; M41.86 Other forms of scoliosis, lumbar region; M25.78 Osteophyte, vertebrae; M43.16 Spondylolisthesis, lumbar region ==